=== PATIENT | female | born 1965 | race Caucasian/White ===

== ENCOUNTER 2017-08-23 17:27 | Emergency (ER) | payer OTHER ==
[~2017-08-23] VITALS: Ht 152.4 cm; Wt 102.5 kg
[~2017-08-23 17:27] MED LIST: CIPRO500 MG PO; CITALOPRAM HYDR20 M1 PO; COL100 PO; COLACE100 MG PO; Cipro PO; FLO4 PO; LAC PO; LOSARTAN POTASS1 TA6 PO; MAC100; METOPROLOL SUCC50 M2 PO; MONTELUKAST SOD10 M1 PO; NEPHRO-VITE1 TAB PO; NITROFURANTOIN100 MG; NOR10T PO; NORCO1 TAB PO; PYR100 PO; SIMVASTATIN20 M1 PO; ZOF4 PO
[2017-08-23 17:47] VITALS: Ht 152.4 cm; Wt 102.5 kg
[2017-08-23 20:06] VITALS: BP 127/65
== END 2017-08-23 20:06 | disposition home or self-care (01) ==
LOC: ED 17:27
DX: J06.9 Acute upper respiratory infection, unspecified (principal); J45.909 Unspecified asthma, uncomplicated; I10 Essential (primary) hypertension
CPT/HCPCS: J7512; J7613; J7644